=== PATIENT | male | born 1935 | race Caucasian/White ===

== ENCOUNTER 2017-08-30 15:19 | Emergency (ER) | payer MEDICARE, OTHER ==
[~2017-08-30] VITALS: Ht 170.2 cm; Wt 70.0 kg
[2017-08-30] MEDS ORDERED: LIDOCAINE-MPF 1%, 5ML ONE (15:55)
[2017-08-30] MEDS ORDERED: DABI75CA3 PO (15:58)
[2017-08-30] MEDS ORDERED: LIDOCAINE-MPF 1%, 5ML INFIL ONE (16:00)
[2017-08-30] MEDS ORDERED: DIPH,PERTUSS(ACELL),TET VAC/PF 0.5 ML IM-VACC ONE ×2 (16:00→16:03)
[2017-08-30] MEDS ORDERED: CEFAZOLIN PMX 1GM/50ML 50 ML ONE (17:05)
[2017-08-30] MEDS ORDERED: SODIUM CHLORIDE 0.9% 1,000 ML IV ONE (17:05)
[2017-08-30 17:29] LABS: BASOPHILS # (AUTO) 0.07 x10^3/uL (0-0.1); BASOPHILS % (AUTO) 1 % (0-1); EOSINOPHILS # (AUTO) 0.51 x10^3/uL (0-0.4); EOSINOPHILS % (AUTO) 5 % (1-7); LYMPHOCYTES # (AUTO) 2.21 x10^3/uL (1-3.4); LYMPHOCYTES % (AUTO) 23 % (22-44); MD NO; MEAN CORPUSCULAR HEMOGLOBIN 32.4 pg (27.5-34.5); MEAN CORPUSCULAR HGB CONC 34.1 g/dL (33.2-36.2); MEAN PLATELET VOLUME 10.5 fL (7.4-10.4); MONOCYTES # (AUTO) 1.35 x10^3/uL (0.2-0.8); MONOCYTES % (AUTO) 14 % (2-9); NEUTROPHILS # (AUTO) 5.38 x10^3/uL (1.8-6.8); NEUTROPHILS % (AUTO) 57 % (42-75); PLATELET COUNT 196 x10^3/uL (130-400); RED BLOOD COUNT 5.03 x10^6/uL (4.38-5.82); RED CELL DISTRIBUTION WIDTH 13.7 % (9.4-14.8)
[2017-08-30] MEDS ORDERED: SODIUM CHLORIDE FLUSH 10ML SYR IVF ONE (17:30)
[2017-08-30] MEDS ORDERED: CEFAZOLIN PMX 1GM/50ML 50 ML IV ONE (17:30)
[2017-08-30 17:39] LABS: ALBUMIN 3.6 g/dL (3.4-5.0); ANION GAP 7 mmol/L (5-15); CALCIUM 8.4 mg/dL (8.5-10.1); CHLORIDE 104 mmol/L (98-107); CREATININE 1.11 mg/dL (0.7-1.3)
[2017-08-30] MEDS ORDERED: FENTANYL PF 100 MCG/2ML ONE (19:14)
[2017-08-30] MEDS ORDERED: MIDAZOLAM 1 MG/ML, 2ML ONE (19:14)
[2017-08-30] MEDS ORDERED: DEXAMETHASONE 4 MG/ML, 1ML ONE (19:19)
[2017-08-30] MEDS ORDERED: PROPOFOL 10 MG/ML, 20ML ONE (19:19)
[2017-08-30] MEDS ORDERED: BUPIVACAINE/PF 0.5% INFIL ONE (19:46)
[2017-08-30] MEDS ORDERED: LABETALOL 5MG/ML, 20ML IV PRN (20:00)
[2017-08-30] MEDS ORDERED: FENTANYL PF 100 MCG/2ML IV PRN (20:00)
[2017-08-30] MEDS ORDERED: ACETAMINOPHEN 325 MG TABLET PO PRN (20:00)
[2017-08-30] MEDS ORDERED: EPHEDRINE 50 MG/ML, 1ML IVPush PRN (20:00)
[2017-08-30] MEDS ORDERED: HYDROcodone/APAP 7.5-325MG/15ML UDC PO PRN (20:00)
[2017-08-30] MEDS ORDERED: MEPERIDINE/PF 25MG/0.5ML IVPush PRN (20:00)
[2017-08-30] MEDS ORDERED: ONDANSETRON ODT 8 MG PO PRN (20:00)
[2017-08-30] MEDS ORDERED: hydrALAzine 20 MG/ML, 1ML IV PRN (20:00)
[2017-08-30] MEDS ORDERED: PROMETHAZINE 25 MG/ML, 1ML IV PRN (20:00)
[2017-08-30] MEDS ORDERED: MORPHINE SULFATE 4 MG/ML, 1ML IVPush PRN (20:00)
[2017-08-30] MEDS ORDERED: OXYcodone 5 MG/5 ML ORAL.SOL UDC PO PRN (20:00)
[2017-08-30] MEDS ORDERED: MIDAZOLAM 1 MG/ML, 2ML IV PRN (20:00)
[2017-08-30] MEDS ORDERED: ALBUTEROL SULFATE 2.5 MG/3 ML NPPB PRN (20:00)
[2017-08-30 21:00] VITALS: BP_SYST 118; BP_SYST 120; BP_DIAS 78; BP_DIAS 86
[2017-08-30] MEDS ORDERED: OXYC5CAP2 PO (21:38)
[2017-08-30 21:45] VITALS: BP 120/86
[2017-08-30] MEDS ORDERED: OXYcodone IR 5MG TABLET PO PRN (22:00)
== END 2017-08-30 22:00 | disposition home or self-care (01) ==
LOC: ED 16:49 → 4NOR 20:51 → ED 22:00
DX: S61.317A Laceration without foreign body of left little finger with damage to nail, initial encounter (principal); I48.91 Unspecified atrial fibrillation; Z79.01 Long term (current) use of anticoagulants; W23.0XXA Caught, crushed, jammed, or pinched between moving objects, initial encounter; Y93.89 Activity, other specified; Y99.8 Other external cause status; Y92.410 Unspecified street and highway as the place of occurrence of the external cause
CPT/HCPCS: 26951; 36415; 73140; 80048; 82040; 85025; 90471; 90472; 90715; 93005; 96365; 99285; J0690; J1100; J2250; J2704; J3010; J3490; J7030; 64450